=== PATIENT | male | born 1980 | race Caucasian/White ===

== ENCOUNTER → 2016-09-02 | Outpatient (CLI) | payer BC ==
[~2016-09-02] MED LIST: GADOBUTROL 7.5 MMOL/7.5 ML VIAL INT ART ONE; IOHEXOL 300 MG/ML 50 ML VIAL. INT ART ONE; LIDOCAINE 1% Multi-Dose 20 ML VIAL. ID ONE
--- NOTE | 2016-09-02 15:51 | KCIC ---
PROCEDURE MR arthrogram of the right shoulder HISTORY Right shoulder pain. Labral tear. Surgery 2000. COMPARISON March 14, 2016. TECHNIQUE Intra-articular contrast injected prior to the scan, and reported separately. The standard 4 plane sequences were obtained including ABER positioning. FINDINGS Acromioclavicular joint is mildly degenerative, similar to prior study. Mild signal with thickening of the rotator cuff compatible with tendinosis. Small partial tear of the undersurface of the anterior supraspinatus tendon measures about 8 mm AP by up to 60 percent deep. This was not seen previously, but that may be due to the lack of contrast on the prior study. No large or full-thickness tear. Mild contrast in the anterior subdeltoid bursa. Similar mild partial subscapularis tendon tear. No new muscle atrophy. Mild contrast accumulation within the superior labrum compatible with a small tear. Biceps tendon is intact. No bone lesion or acute fracture. No acute soft tissue abnormality. IMPRESSION 1. Rotator cuff tendinosis is re-demonstrated. A small sub centimeter partial thickness tear is now identified at the supraspinatus tendon. This was not seen previously, but that may just be due to the lack of intra-articular contrast on the prior exam. 2. Small superior labral tear, again identified. Electronically signed by: Oneal Mix MD (September 02, 2016 15:49:48)
--- NOTE | 2016-09-02 16:55 | KCIC ---
PROCEDURE: Right shoulder injection using fluoroscopic guidance, prior to MR. HISTORY: Shoulder pain. TECHNIQUE: The procedure was explained to the patient as were potential risks, including among others infection, bleeding or allergic reaction. All questions were answered. Informed written and verbal consent was obtained. The shoulder was prepped and draped in the usual sterile manner. Following administration of local anesthetic, a 22-gauge needle was advanced into the anterior shoulder. Following negative aspiration, 12 cc of a solution of 5cc Omnipaque-300 contrast, 5 cc 1% lidocaine, 10 cc normal saline, and 0.1 cc gadolinium was injected without difficulty. The needle was removed. There was good hemostasis at the injection site. The patient left in stable condition without immediate complication. The patient was given postprocedural instructions, and instructed to contact us or the ER if there are any complications. A single spot image is obtained. FLUOROSCOPY TIME: 16 seconds Electronically signed by: Oneal Mix MD (September 02, 2016 16:54:15)
== END | disposition home or self-care (01) ==
LOC: KCIC 12:44
PROVIDERS: ATTEND Orthopaedic Surgery Sports Medicine
DX: S43.401A Unspecified sprain of right shoulder joint, initial encounter (principal); S43.431A Superior glenoid labrum lesion of right shoulder, initial encounter; X58.XXXA Exposure to other specified factors, initial encounter; Y93.89 Activity, other specified; Y92.89 Other specified places as the place of occurrence of the external cause; Y99.8 Other external cause status
CPT/HCPCS: 73040; 73222; Q9967; A9585